=== PATIENT | male | born 1980 | race Two or more races ===

== ENCOUNTER 2018-04-07 21:54 | Emergency (ER) | payer MEDICAID ==
[~2018-04-07] VITALS: Ht 165.1 cm; Wt 108.9 kg
[2018-04-07 22:14] VITALS: BP 148/78
== END 2018-04-08 02:06 | disposition home or self-care (01) ==
LOC: ER 21:54
DX: T78.49XA Other allergy, initial encounter (principal); I10 Essential (primary) hypertension; L29.9 Pruritus, unspecified; X58.XXXA Exposure to other specified factors, initial encounter

== ENCOUNTER → 2018-05-14 | Emergency (ER) | payer MEDICAID | END | disposition left against medical advice (07) | LOC: ER 23:42 | DX: R21 Rash and other nonspecific skin eruption (principal); Z53.21 Procedure and treatment not carried out due to patient leaving prior to being seen by health care provider ==

== ENCOUNTER 2019-05-24 15:05 | Emergency (ER) | payer MEDICAID ==
[~2019-05-24] VITALS: Ht 165.1 cm; Wt 99.8 kg
[2019-05-24] MEDS ORDERED: ACETAMINOPHEN 500 MG TAB PO ONE (18:30)
[2019-05-24] MEDS ORDERED: LORazepam 2MG/ML-1ML VIAL IV ONE (19:15)
[2019-05-24] MEDS ORDERED: CLINDAMYCIN 900MG IV 50 ML IV ONE (19:15)
[2019-05-24] MEDS ORDERED: SODIUM CHLORIDE 0.9% 2,000 ML IV ONE (19:15)
[2019-05-24] MEDS ORDERED: DexAMETHasone INJECTION 10 MG in D5W 5% 50 ML IV ONE ×2 (19:15→20:00)
[2019-05-24] MEDS ORDERED: KETOROLAC TROMETH 30 MG/ML 1ML VIAL IV ONE (19:15)
[2019-05-24 20:15] LABS: Basophils # (auto) 0 uL; Basophils % (auto) 0.3 % (0.0-2.0); Eosinophils # (auto) 0 uL; Hematocrit 40.4 % (41.0-53.0); Hemoglobin 13.8 g/dL (13.5-17.5); Lymphocytes # (auto) 1.5 uL; Lymphocytes % (auto) 10.6 % (10.0-50.0); Mean Corpuscular Hemoglobin 32.8 pg (28.0-32.0); Mean Corpuscular Hgb Conc. 34.1 g/dL (32.0-36.0); Mean Corpuscular Volume 96.2 fL (80.0-100.0); Monocytes # (auto) 0.8 uL; Monocytes % (auto) 5.6 % (0.0-12.0); Neutrophils # (auto) 11.4 uL; Neutrophils % (auto) 83.5 % (37.0-80.0); Platelet Count (auto) 200 10^3/uL (140-450); Red Cell Distribution Width 12.5 % (11.8-14.3); White Blood Cell 13.7 10^3/uL (4.4-10.8)
[2019-05-24 20:30] LABS: Albumin 3.2 g/dL (3.4-5.0); BUN/Creatinine Ratio 7.5; Calcium 8.5 mg/dL (8.5-10.1); Potassium 3.3 mmol/L (3.5-5.1)
[2019-05-24 20:32] LABS: Bilirubin, Total 0.5 mg/dL (0.2-1.0); Total Protein 7.3 g/dL (6.4-8.2)
[2019-05-24 21:27] VITALS: BP 124/77
[2019-05-24 22:29] LABS: Urine Bacteria FEW /hpf (None Seen); Urine Blood 1+ /uL (Negative); Urine Specific Gravity 1.019 (1.001-1.035); Urine WBC 6 /hpf (0 - 3)
[2019-05-25] MEDS ORDERED: DexAMETHasone INJECTION 10 MG in D5W 5% 50 ML IV SCH (10:00)
== END 2019-05-24 22:56 | disposition home or self-care (01) ==
LOC: ER 15:17
DX: J02.0 Streptococcal pharyngitis (principal); N50.811 Right testicular pain; I10 Essential (primary) hypertension; F17.210 Nicotine dependence, cigarettes, uncomplicated
CPT/HCPCS: 36415; 76870; 80053; 81001; 85025; 94761; 96365; 96367; 96375; 99284; J1100; J1885; J2060; J3490; J7030; J7060

== ENCOUNTER 2020-04-24 15:48 | Inpatient (IN) | payer MEDICAID ==
[~2020-04-24] VITALS: Ht 165.1 cm; Wt 103.0 kg
[2020-04-24] MEDS ORDERED: SODIUM CHLORIDE 0.9% 1,000 ML IV ONE (16:43)
[2020-04-24] MEDS ORDERED: LIDOCAINE 1% (LOCAL ANESTH.) PF 5ml SDV ID ONE (16:45)
[2020-04-24] MEDS ORDERED: CLINDAMYCIN 600MG IV 50 ML IV ONE (17:00)
[2020-04-24 17:40] LABS: Basophils # (auto) 0.1 10 ^3/uL (0-0.2); Basophils % (auto) 1.1 % (0.0-2.0); Eosinophils # (auto) 0.1 10 ^3/uL (0-0.8); Eosinophils % (auto) 0.9 % (0.0-7.0); Hematocrit 44.2 % (41.0-53.0); Hemoglobin 14.7 g/dL (13.5-17.5); Lymphocytes # (auto) 1.9 10 ^3/uL (0.4-5.4); Lymphocytes % (auto) 23.2 % (10.0-50.0); Mean Corpuscular Hemoglobin 32.5 pg (28.0-32.0); Mean Corpuscular Hgb Conc. 33.2 g/dL (32.0-36.0); Mean Corpuscular Volume 97.9 fL (80.0-100.0); Monocytes # (auto) 0.7 10 ^3/uL (0-1.3); Monocytes % (auto) 8.2 % (0.0-12.0); Neutrophils # (auto) 5.6 10 ^3/uL (1.6-8.6); Neutrophils % (auto) 66.6 % (37.0-80.0); Nucleated Red Blood Cells % 0.1 %; Platelet Count (auto) 361 10^3/uL (140-450); Red Blood Cells 4.51 10^6/uL (4.5-5.90); Red Cell Distribution Width 13.2 % (11.8-14.3); White Blood Cell 8.3 10^3/uL (4.4-10.8)
[2020-04-24 17:56] LABS: BUN/Creatinine Ratio 9.6; Calcium 9.9 mg/dL (8.5-10.1); Potassium 4.6 mmol/L (3.5-5.1)
[2020-04-24 17:59] LABS: Bilirubin, Total 0.3 mg/dL (0.2-1.0); Total Protein 8.7 g/dL (6.4-8.2)
[2020-04-24] MEDS ORDERED: ACETAMINOPHEN 325 MG TAB PO PRN (21:15)
[2020-04-24] MEDS ORDERED: cefTRIAXone 1GM/50ML D5W 50 ML IV ONE (21:15)
[2020-04-24] MEDS ORDERED: TEMAZEPAM 15 MG CAP PO PRN (21:15)
[2020-04-24] MEDS ORDERED: ONDANSETRON HCL 4 MG/2 ML VIAL IV PRN (21:15)
[2020-04-24] MEDS ORDERED: CLINDAMYCIN 600MG IV 50 ML IV SCH (22:00)
[2020-04-24 22:23] LABS: BUN/Creatinine Ratio 10.4; Calcium 9.4 mg/dL (8.5-10.1); Potassium 4.1 mmol/L (3.5-5.1)
[2020-04-25] MEDS: FAMOTIDINE 20 MG TAB PO SCH ×3 (00:04→21:26)
[2020-04-25] MEDS: HYDROcodone-ACET 5/325MG TAB PO PRN ×2 (00:04→21:26)
[2020-04-25] MEDS: SODIUM CHLORIDE 0.9% 1,000 ML IV SCH ×2 (01:00→12:20)
[2020-04-25 05:00] VITALS: BP 103/65
[2020-04-25 05:59] LABS: Hematocrit 38.8 % (41.0-53.0); Hemoglobin 13.3 g/dL (13.5-17.5); Mean Corpuscular Hemoglobin 33.3 pg (28.0-32.0); Mean Corpuscular Hgb Conc. 34.2 g/dL (32.0-36.0); Mean Corpuscular Volume 97.4 fL (80.0-100.0); Platelet Count (auto) 316 10^3/uL (140-450); Red Blood Cells 3.99 10^6/uL (4.5-5.90); Red Cell Distribution Width 13.2 % (11.8-14.3); White Blood Cell 7.7 10^3/uL (4.4-10.8)
[2020-04-25 06:13] LABS: Calcium 8.3 mg/dL (8.5-10.1); Potassium 3.9 mmol/L (3.5-5.1)
[2020-04-25 06:15] LABS: BUN/Creatinine Ratio 14.1
[2020-04-25 06:33] LABS: Basophils % (manual) 0 (0.0-2.0); Blast Cells 0; Metamyelocytes % 0; Myelocytes % 0; Promyelocytes % 0; Reactive Lymphocytes 0
[2020-04-25 07:38] LABS: Band Neutrophils % (manual) 2; Eosinophils % (manual) 3 (0-7); Lymphocytes % (manual) 41 (10.0-50.0); Monocytes % (manual) 6 (0-12)
[2020-04-25 08:30] VITALS: BP 113/72
[2020-04-25 09:00] VITALS: BP 113/72
[2020-04-25] MEDS ORDERED: CLINDAMYCIN 600MG IV 50 ML IV SCH (09:00)
--- NOTE | 2020-04-25 09:00 | NUR ---
Scheduled po and IV abx given per order. Patient resting quietly in bed with no distress noted. Patient stable at this time.
--- NOTE | 2020-04-25 10:45 | NUR ---
Patient asleep with no distress noted.
--- NOTE | 2020-04-25 11:00 | NUR ---
Patient stable with Dr. Lee at bedside. Denies any pain.
[2020-04-25 12:38] VITALS: BP 110/70
--- NOTE | 2020-04-25 12:40 | NUR ---
Patient resting comfortably in bed with no complaint of pain at this time. Patient stable. Advised patient that he should not take any food or liquid by mouth until he is seen by Dr. Deshpande, podiatry.
--- NOTE | 2020-04-25 13:10 | NUR ---
Patient stable with Dr. Deshpande at bedside.
--- NOTE | 2020-04-25 14:05 | NUR ---
Patient taken to preop for I&D of left foot abscess.
[2020-04-25] MEDS ORDERED: ceFAZolin 1GM/50ML 50 ML IV ONE (14:45)
[2020-04-25] MEDS ORDERED: fentaNYL CITRATE 100 MCG/2 ML VL ONE (14:50)
[2020-04-25] MEDS ORDERED: MIDAZOLAM HCL 1MG/1ML-2 ML VIAL ONE (14:50)
[2020-04-25] MEDS ORDERED: ceFAZolin 1GM VL ONE (14:51)
[2020-04-25] MEDS ORDERED: ePHEDrine SULFATE 50 MG/ML AMP IV PRN (15:00)
[2020-04-25] MEDS ORDERED: HYDROmorphone HCL 2 MG/ML VL IV PRN (15:00)
[2020-04-25] MEDS ORDERED: LABETALOL HCL 5 MG/ML 4ML SYRINGE IV PRN (15:00)
[2020-04-25] MEDS ORDERED: ONDANSETRON HCL 4 MG/2 ML VIAL IV PRN (15:00)
[2020-04-25] MEDS ORDERED: MORPHINE SULFATE 4 MG/ML SYR/VIAL IV PRN (15:00)
[2020-04-25] MEDS ORDERED: PROPOFOL 10 MG/ML 20 ML IV ONE (15:17)
--- NOTE | 2020-04-25 16:05 | NUR ---
Patient returned to unit in stable condition.
[2020-04-25 16:55] VITALS: BP 123/75
--- NOTE | 2020-04-25 18:45 | NUR ---
Patient resting comfortably in bed with no complaint of pain at this time. Patient stable throughout shift.
[2020-04-25] MEDS: CLINDAMYCIN 600MG IV 50 ML IV SCH (20:03)
[2020-04-25] MEDS ORDERED: cefTRIAXone 1GM/50ML D5W 50 ML IV SCH (21:00)
[2020-04-25 22:00] VITALS: BP 107/69
[2020-04-26] MEDS: SODIUM CHLORIDE 0.9% 1,000 ML IV SCH ×2 (02:16→14:22)
[2020-04-26 05:00] VITALS: BP 131/84
[2020-04-26] MEDS: CLINDAMYCIN 600MG IV 50 ML IV SCH ×2 (05:55→14:11)
[2020-04-26 08:00] VITALS: BP 129/78
[2020-04-26 08:55] VITALS: BP 129/78
[2020-04-26] MEDS: FAMOTIDINE 20 MG TAB PO SCH (09:57)
[2020-04-26] MEDS: HYDROcodone-ACET 5/325MG TAB PO PRN ×2 (09:58→14:22)
[2020-04-26] MEDS ORDERED: ENOXAPARIN SOD 40 MG/0.4 ML SYRINGE SC SCH (10:00)
[2020-04-26 13:00] VITALS: BP 133/89
[2020-04-26 13:45] VITALS: BP 129/78
[2020-04-26 17:00] VITALS: BP 138/79
--- NOTE | 2020-04-26 17:22 | NUR ---
Discharge instructions given as ordered. Encourage to follow up with Dr. Bravo and podiatric Dr. Deshpande as instructed. All questions and concerns addressed. Patient verbalized understanding. Medication reconciliation form completed and copy given to patient. IV removed with catheter intact, pressure dressing applied. Patient taken to vehicle via wheelchair with all personal belongings, accompanied by staff and family member. No distress noted at time of departure.
== END 2020-04-26 17:30 | disposition home or self-care (01) | DRG 383 ==
LOC: ER 15:48 → OVERFLOW 15:49 → WEST WING 04-25 00:22
PROVIDERS: ADMIT Nurse Practitioner; ATTEND Internal Medicine
PROC: 2W4 Placement, Anatomical Regions, Packing (ICD-10-PCS; 2020-04-25)
PROC: 0Y9N0ZZ Drainage of Left Foot, Open Approach (ICD-10-PCS; principal; 2020-04-25 14:50)
DX: L03.116 Cellulitis of left lower limb (principal); L02.612 Cutaneous abscess of left foot; E66.01 Morbid (severe) obesity due to excess calories; F17.210 Nicotine dependence, cigarettes, uncomplicated; I10 Essential (primary) hypertension; Z68.37 Body mass index [BMI] 37.0-37.9, adult
CPT/HCPCS: 36415; 71045; 73620; 80048; 80053; 83605; 85007; 85025; 85027; 87040; 87070; 87075; 87077; 87186; 87205; 96365; 96367; G0378; J0690; J0696; J2250; J2704; J3490

== ENCOUNTER 2020-04-26 20:59 | Emergency (ER) | payer MEDICAID ==
[~2020-04-26] VITALS: Ht 165.1 cm; Wt 99.8 kg
[2020-04-26 21:28] VITALS: BP 122/88
== END 2020-04-26 22:48 | disposition home or self-care (01) ==
LOC: ER 20:59
DX: Z48.01 Encounter for change or removal of surgical wound dressing (principal)

== ENCOUNTER 2020-05-07 20:50 | Emergency (ER) | payer MEDICAID ==
[~2020-05-07] VITALS: Ht 165.1 cm; Wt 108.9 kg
[2020-05-07 21:34] VITALS: BP 144/86
== END 2020-05-08 00:08 | disposition left against medical advice (07) ==
LOC: ER 20:50
DX: Z48.00 Encounter for change or removal of nonsurgical wound dressing (principal); Z53.21 Procedure and treatment not carried out due to patient leaving prior to being seen by health care provider

== ENCOUNTER 2023-01-20 22:16 | Emergency (ER) | payer MEDICAID, OTHER ==
[~2023-01-20] VITALS: Ht 165.1 cm; Wt 104.1 kg
[2023-01-21] MEDS ORDERED: ACET-1158 PO (00:23)
[2023-01-21] MEDS ORDERED: IBUP800T27 PO (00:23)
[2023-01-21 01:59] VITALS: BP 131/78
== END 2023-01-21 02:19 | disposition home or self-care (01) ==
LOC: ER 22:16
DX: S16.1XXA Strain of muscle, fascia and tendon at neck level, initial encounter (principal); V49.49XA Driver injured in collision with other motor vehicles in traffic accident, initial encounter; Y93.89 Activity, other specified; Y92.411 Interstate highway as the place of occurrence of the external cause; Y99.8 Other external cause status
CPT/HCPCS: 70450; 72125; 72131

== ENCOUNTER 2023-02-10 09:32 | Emergency (ER) | payer MEDICAID ==
[~2023-02-10] VITALS: Ht 165.1 cm; Wt 101.0 kg
[~2023-02-10 09:32] MED LIST: ACET500T58 PO; IBUP-1456 PO
[2023-02-10 10:19] LABS: Basophils # (auto) 0.1 10 ^3/uL (0-0.2); Basophils % (auto) 0.7 % (0.0-2.0); Eosinophils # (auto) 0.1 10 ^3/uL (0-0.8); Eosinophils % (auto) 0.8 % (0.0-7.0); Hematocrit 43.5 % (41.0-53.0); Hemoglobin 14.9 g/dL (13.5-17.5); Lymphocytes % (auto) 25.2 % (10.0-50.0); Mean Corpuscular Hemoglobin 31.8 pg (28.0-32.0); Mean Corpuscular Hgb Conc. 34.1 g/dL (32.0-36.0); Monocytes # (auto) 0.7 10 ^3/uL (0-1.3); Monocytes % (auto) 5.8 % (0.0-12.0); Neutrophils # (auto) 8.1 10 ^3/uL (1.6-8.6); Neutrophils % (auto) 67.5 % (37.0-80.0); Nucleated Red Blood Cells % 0.1 %; Red Blood Cells 4.68 10^6/uL (4.5-5.90); Red Cell Distribution Width 12.5 % (11.8-14.3); White Blood Cell 11.9 10^3/uL (4.4-10.8)
[2023-02-10 10:35] LABS: Urine Bacteria NONE SEEN /hpf (None Seen); Urine Blood 3+ /uL (Negative); Urine Specific Gravity 1.018 (1.001-1.035); Urine WBC 459 /hpf (0 - 3)
[2023-02-10 10:44] LABS: Albumin 4.1 g/dL (3.4-5.0); Calcium 9.5 mg/dL (8.5-10.1); Potassium 4.2 mmol/L (3.5-5.1)
[2023-02-10 10:46] LABS: BUN/Creatinine Ratio 11.2 (10.0-20.0); Bilirubin, Total 0.8 mg/dL (0.2-1.0); Total Protein 8.4 g/dL (6.4-8.2)
[2023-02-10] MEDS ORDERED: IBU600T PO (12:06)
[2023-02-10] MEDS ORDERED: TAMS-35 PO (12:06)
[2023-02-10] MEDS ORDERED: BACDST PO (12:06)
[2023-02-10] MEDS ORDERED: KETOROLAC TROMETH 30 MG/ML 1ML VIAL IV ONE (12:30)
[2023-02-10] MEDS ORDERED: TAMSULOSIN HYDROCHLORIDE 0.4 MG CAP PO ONE (12:30)
[2023-02-10] MEDS ORDERED: cefTRIAXone 1GM/50ML D5W 50 ML IV ONE (12:30)
[2023-02-10] MEDS ORDERED: SODIUM CHLORIDE 0.9% 1,000 ML IV ONE ×2 (12:30)
[2023-02-10 13:37] VITALS: BP 125/83
== END 2023-02-10 14:25 | disposition home or self-care (01) ==
LOC: ER 09:32
DX: K80.20 Calculus of gallbladder without cholecystitis without obstruction (principal); N20.0 Calculus of kidney; Z79.899 Other long term (current) drug therapy; Z98.890 Other specified postprocedural states
CPT/HCPCS: 36415; 74176; 80053; 81001; 83690; 85025; 96365; 96375; 99285; J0696; J1885; J7030

== ENCOUNTER 2023-07-18 20:53 | Emergency (ER) | payer MEDICAID, OTHER ==
[~2023-07-18] VITALS: Ht 165.1 cm; Wt 113.6 kg
[~2023-07-18 20:53] MED LIST changes: +BACDST PO; +IBU600T PO; +TAMS-35 PO
[2023-07-18 21:16] VITALS: BP 121/80; PULSE 95; RESP 22; O2SAT 94
== END 2023-07-18 23:22 | disposition left against medical advice (07) ==
LOC: ER 20:53
DX: N50.9 Disorder of male genital organs, unspecified (principal); Z79.1 Long term (current) use of non-steroidal anti-inflammatories (NSAID); Z79.899 Other long term (current) drug therapy